=== PATIENT | male | born 1960 | race Caucasian/White ===

== ENCOUNTER 2019-01-27 14:03 | Emergency (ER) | payer MEDICAID, OTHER ==
[~2019-01-27] VITALS: Ht 177.8 cm; Wt 141.5 kg
[2019-01-27 15:56] VITALS: BP 184/93
== END 2019-01-27 16:16 | disposition home or self-care (01) ==
LOC: ED 14:55
DX: K01.1 Impacted teeth (principal)
CPT/HCPCS: 99283